=== PATIENT | female | born 1985 | race Hispanic/Latino ===

== ENCOUNTER 2017-03-08 22:55 | Emergency (ER) | payer OTHER ==
[~2017-03-08] VITALS: Ht 170.2 cm; Wt 107.7 kg
[~2017-03-08 22:55] MED LIST: NIC14 TD; NOMED; OMEP20TA86 PO; REG10 PO
[2017-03-08 22:58] VITALS: BP 131/79; PULSE 126; O2SAT 98
--- NOTE | 2017-03-08 23:14 | ED.REPORT ---
HPI-General Illness Date of Service Mar 08, 2017 ED Provider: Ralph Chapin DO The pt is 31 y/o female w/ a hx of a depression, anxiety, and UTI presenting to the ED w/ a headache onset 17:30 today. She took her first dose of Doxycycline at that time, which was prescribed recently for a lump under her breast. Her whole body began hurting after this and her headache began. She describes her headache as "pounding" and feeling like it is "on fire" w/ a severity of 9/10. She tried applying ice packs and Ibuprofen to help reduce the pain, but this was ineffective. She denies any hives or possibility of . Nursing Notes Stated Complaint: HEADACHE Chief Complaint: Allergic Reaction Nursing Notes Reviewed: Yes Allergies: Coded Allergies: Penicillins (Verified Allergy, Unknown, 03/08/17) hydrocodone (Verified Allergy, Unknown, 03/08/17) Scheduled MetoCLOpramide-Expunged Drug, Do Not Renew! (MetoCLOpramide-Expunged Drug, Do Not Renew!) 10 Mg Tablet 10 MG PO ACHS TO STIMULATE GASTRIC MOTILITY Omeprazole-Expunged Drug, Do Not Renew! (Omeprazole-Expunged Drug, Do Not Renew! ) 20 Mg Tablet.dr 20 MG PO AM STOMACH ACID REDUCTION/HEART BURN CONTINUE FOR 14 DAYS, THEN STOP AND SEE IF ANY PROBLEMS ONCE OFF IT & AND IF START DELEVOPING RECURENT ABDOMINAL PAIN/ NAUSEA THEN RESTART TAKING IT Scheduled PRN Nicotine-Expunged Drug, Do Not Renew! (Nicoderm 14mg-Expunged Drug, Do Not Renew !) Patch 1 EA TD DAILY PRN PRN TO QUIT SMOKING Miscellaneous Medications No Historical Medication (No Historical Medication) Ea General Time Seen by MD: 23:13 Chief Complaint Headache Hx Obtained From: Patient Arrived By: Walk-in Sudden in Onset?: Yes Onset Occurred: 5 - 8 hours ago Symptom Duration: Since onset Recent Healthcare: No recent hospitalization, Recent doctor visit Similar Sx Previous: No Past Medical History Past Medical History Endometriosis UTI depression anxiety blood transfusion Past Surgical History denies Smoking History Current Every Day Smoker Social History Alcohol Use: "Social" Drug Use: Denies drug use Other Social History: Good social support Occupation lives with friends Ambulatory Status Independent Review of Systems Full Review of Systems Constitutional: Denies: Chills Respiratory: Denies: Non-productive cough, Shortness of breath Cardiovascular: Denies: Chest pain Musculoskeletal: Reports: Myalgia Allergy / Immune: Denies: Hives Neurologic: Reports: Headache Complete sys rev & neg: except as marked. Physical Exam Vital Signs Vital Signs Date Time Temp Pulse Resp B/P Pulse Ox O2 Delivery O2 Flow Rate FiO2 03/09/17 02:02 37 69 16 107/60 95 Room Air 03/08/17 22:58 36.5 126 131/79 98 Room Air Initial VS: Reviewed Head / Eyes: Atraumatic, Normocephalic, PERRL ENT: Mucous membranes moist, Conjunctiva normal, No scleral icterus Neck: Supple, Non-tender, Full range of motion Cardiovascular: Regular rate & rhythm, Heart sounds normal, Intact distal pulses Abdomen / GI: Soft, Non-tender Skin: Warm, Dry, No cyanosis General/Constitutional: Awake, Alert Distress / Hydration: Positive: Distress moderate Behavior: Positive: Anxious, Tearful Respiratory / Chest: Atraumatic, Breath sounds NL, Breath sounds = bilat, No respiratory distress Hyperventilation Neurologic: Oriented X3, Speech NL, No motor deficits, No sensory deficits, CN II - XII intact Psychiatric: Affect NL, Mood NL Interpretation & Diagnostics Lab Results Interpretation Result Diagram: 03/08/17 2350 03/08/17 2350 Test 03/08/17 23:50 03/09/17 00:40 03/09/17 00:50 White Blood Count 12.0th/mm3 (3.8-10.1) Red Blood Count 3.82mil/mm3 (3.90-5.20) Hemoglobin 11.4g/dL (12.0-15.6) Hematocrit 33.8% (35.0-46.0) Mean Corpuscular Volume 88.5fL (81-100) Mean Corpuscular Hemoglobin 29.8pg (27.0-35.0) Mean Corpuscular Hemoglobin Concent 33.7% (32.0-37.0) Red Cell Distribution Width 14.6% (12.3-15.4) Platelet Count 322bil/L (150-400) Neutrophils (%) (Auto) 66.8% (40-74) Lymphocytes (%) (Auto) 22.1% (14-46) Monocytes (%) (Auto) 9.4% (4-12) Eosinophils (%) (Auto) 1.2% (0-5) Basophils (%) (Auto) 0.2% (0-3) Sodium Level 137mEq/L (134-144) Potassium Level 3.8mEq/L (3.5-5.2) Chloride Level 102mEq/L (97-108) Carbon Dioxide Level 21mmol/L (18-29) Blood Urea Nitrogen 8mg/dL (6-20) Creatinine 0.53mg/dL (0.57-1.00) Estimat Glomerular Filtration Rate 194mL/min (>59) Glucose Level 100mg/dL (60-99) Calcium Level 9.5mg/dL (8.5-10.1) Total Bilirubin 0.3mg/dL (0.0-1.2) Aspartate Amino Transf (AST/SGOT) 18U/L (0-50) Alanine Aminotransferase (ALT/SGPT) 19U/L (0-32) Alkaline Phosphatase 65U/L (25-150) Total Protein 7.0g/dL (6.4-8.4) Albumin 4.1g/dL (3.4-5.0) Hold Quinones Top Tube Received (Received) CSF Appearance Clear (CLEAR) CSF Color Colorless (COLORLESS) CSF WBC 0/mm3 (0-5) CSF RBC 5/mm3 CSF Mononuclear WBCs % CSF Polynuclear WBCs % CSF Other Cells CSF Glucose 64mg/dL (45-90) CSF Total Protein 44mg/dL (15-45) Urine Color Straw (YELLOW) Urine Appearance Clear (CLEAR,HAZY) Urine pH 6.5 (5.0-8.0) Urine Specific Nash 1.010 (1.003-1.035) Urine Protein Negativemg/dL (NEG,TRACE) Urine Glucose (UA) Negativemg/dL (NEGATIVE) Urine Ketones Negativemg/dL (NEGATIVE) Urine Occult Blood Negative (NEGATIVE) Urine Nitrite Negative (NEGATIVE) Urine Bilirubin Negative (NEGATIVE) Urine Urobilinogen Normalmg/dL (NORMAL) Urine Leukocyte Esterase Negative (NEGATIVE) Urine RBC 0-2/hpf (0-2) Urine WBC 0-5/hpf (0-5) Urine Epithelial Cells Few/hpf (NONE-MOD) Urine Crystals None seen (NONE SEEN) Urine Bacteria Few/hpf (NONE-FEW) Urine Hyaline Casts None/lpf (NONE) Urine Granular Casts None seen (NONE SEEN) Urine Waxy Casts None seen (NONE SEEN) Urine Red Blood Cell Casts None seen (NONE SEEN) Urine White Blood Cell Casts None seen (NONE SEEN) Urine Mucus None seen (None Seen) Urine Trichomonas None seen (NONE SEEN) Urine Yeast None (NONE SEEN) Urinalysis Comment None Urine Culture Reflexed Not indicated Hold Urine Received (Received) Pulse Oximetry Interpretation Pulse Oximetry Interpretation: 98% on RA Pulse Oximetry: Pulse Ox normal CT Head Interpretation Impression: No CT evidence of hemorrhage, mass, or acute infarct. Study: Head CT no contrast Interpretation / Wet Read by: Wet read ED physician Procedures Lumbar Puncture Time: 00:26 Procedure Performed by: ED physician Consent / Setup / Site Prep: Informed consent provided, Consent from patient , Time-out performed, Hand hygiene observed, Stand sterile technique, Sterile drapes applied, Patient left lateral Skin Preparation Agent: Betadine Local Anesthesia: Lidocaine 1% LP Needle Gauge: 22 gauge Inserted Needle at: L3 L4 Post-Procedure / Complications: Antibiotic oint applied, Dressing applied, No complications, Tolerated procedure well, Patient stable Lab Results Interpretation Result Diagram: 03/08/17 2350 03/08/17 2350 Test 03/08/17 23:50 03/09/17 00:40 03/09/17 00:50 White Blood Count 12.0th/mm3 (3.8-10.1) Red Blood Count 3.82mil/mm3 (3.90-5.20) Hemoglobin 11.4g/dL (12.0-15.6) Hematocrit 33.8% (35.0-46.0) Mean Corpuscular Volume 88.5fL (81-100) Mean Corpuscular Hemoglobin 29.8pg (27.0-35.0) Mean Corpuscular Hemoglobin Concent 33.7% (32.0-37.0) Red Cell Distribution Width 14.6% (12.3-15.4) Platelet Count 322bil/L (150-400) Neutrophils (%) (Auto) 66.8% (40-74) Lymphocytes (%) (Auto) 22.1% (14-46) Monocytes (%) (Auto) 9.4% (4-12) Eosinophils (%) (Auto) 1.2% (0-5) Basophils (%) (Auto) 0.2% (0-3) Sodium Level 137mEq/L (134-144) Potassium Level 3.8mEq/L (3.5-5.2) Chloride Level 102mEq/L (97-108) Carbon Dioxide Level 21mmol/L (18-29) Blood Urea Nitrogen 8mg/dL (6-20) Creatinine 0.53mg/dL (0.57-1.00) Estimat Glomerular Filtration Rate 194mL/min (>59) Glucose Level 100mg/dL (60-99) Calcium Level 9.5mg/dL (8.5-10.1) Total Bilirubin 0.3mg/dL (0.0-1.2) Aspartate Amino Transf (AST/SGOT) 18U/L (0-50) Alanine Aminotransferase (ALT/SGPT) 19U/L (0-32) Alkaline Phosphatase 65U/L (25-150) Total Protein 7.0g/dL (6.4-8.4) Albumin 4.1g/dL (3.4-5.0) Hold Quinones Top Tube Received (Received) CSF Appearance Clear (CLEAR) CSF Color Colorless (COLORLESS) CSF WBC 0/mm3 (0-5) CSF RBC 5/mm3 CSF Mononuclear WBCs % CSF Polynuclear WBCs % CSF Other Cells CSF Glucose 64mg/dL (45-90) CSF Total Protein 44mg/dL (15-45) Urine Color Straw (YELLOW) Urine Appearance Clear (CLEAR,HAZY) Urine pH 6.5 (5.0-8.0) Urine Specific Nash 1.010 (1.003-1.035) Urine Protein Negativemg/dL (NEG,TRACE) Urine Glucose (UA) Negativemg/dL (NEGATIVE) Urine Ketones Negativemg/dL (NEGATIVE) Urine Occult Blood Negative (NEGATIVE) Urine Nitrite Negative (NEGATIVE) Urine Bilirubin Negative (NEGATIVE) Urine Urobilinogen Normalmg/dL (NORMAL) Urine Leukocyte Esterase Negative (NEGATIVE) Urine RBC 0-2/hpf (0-2) Urine WBC 0-5/hpf (0-5) Urine Epithelial Cells Few/hpf (NONE-MOD) Urine Crystals None seen (NONE SEEN) Urine Bacteria Few/hpf (NONE-FEW) Urine Hyaline Casts None/lpf (NONE) Urine Granular Casts None seen (NONE SEEN) Urine Waxy Casts None seen (NONE SEEN) Urine Red Blood Cell Casts None seen (NONE SEEN) Urine White Blood Cell Casts None seen (NONE SEEN) Urine Mucus None seen (None Seen) Urine Trichomonas None seen (NONE SEEN) Urine Yeast None (NONE SEEN) Urinalysis Comment None Urine Culture Reflexed Not indicated Hold Urine Received (Received) Re-Eval/Medical Decision Med Decision/Clinical Course 31 year old female with sudden onset severe headache. CT was normal. LP performed to rule out SAH and meningitis. All was well. Pt treated symptomatically and she did very well. Source of Hx: Old records Time of Eval: 00:25 Patient Status: Condition improved Re-Evaluation/Progress Note: Pt rechecked and lumbar puncture performed. No complications and pt tolerated the procedure well. Time of Eval: 01:37 Patient Status: Condition improved Re-Evaluation/Progress Note: Pt rechecked who is resting comfortably. Informed pt of plan for treatment. Pt understands and agrees with plan for treatment. F/U instructions and RTER warnings given. All questions addressed. Counseled Regarding: Diagnosis, Lab results, Need for follow-up, When/why to return to ED Discharge & Departure Primary Impression: Acute headache Headache type: unspecified Intractability: not intractable Qualified Code: R51 - Headache Disposition: Home Discharge Condition All VS Reviewed: Yes Condition: Stable Patient Instructions: Acute Headache (ED) Additional Instructions: CT scan and lumbar puncture were normal with no signs of infection or bleeding. It is hard to say if the symptoms were due to a reaction with the Doxycycline. Stop taking the Doxycycline and begin taking Clindamycin 3 times daily for 7 days. Call your doctor on Saturday to inform them that you switched medications. Do not drive tonight as you have received sedating medications. Follow up next week with your doctor either way. If you develop any diarrhea while taking the Clindamycin stop taking it and get tested for C-difficile diarrhea. Return to the emergency department if you develop any new or worsening symptoms. Referrals: [facility] Scribe Attestation Portions of this note were transcribed by Sandeep Landa and Cali Jerome. I, Dr. Chapin personally performed the history, physical exam and medical decision-making ; I reviewed and confirmed the accuracy of the information in the transcribed note. Signed by: Sandeep Jerome, Scribes, 03/09/17 and 0148. copies to: [facility] Ralph Chapin DO Mar 08, 2017 23:14 Sandeep Landa Mar 08, 2017 23:37 CALI JEROME Mar 09, 2017 01:11
[2017-03-08] MEDS ORDERED: Dexamethasone 10 mg/mL Inj IM ONE (23:20)
[2017-03-08 23:59] LABS: BASOPHILS % (AUTO) 0.2 % (0-3); EOSINOPHILS % (AUTO) 1.2 % (0-5); MONOCYTES % (AUTO) 9.4 % (4-12); Mean Corpuscular Hemoglobin 29.8 pg (27.0-35.0); Mean Corpuscular Volume 88.5 fL (81-100); NEUTROPHILS % (AUTO) 66.8 % (40-74); Platelet Count 322 bil/L (150-400)
[2017-03-09 01:08] LABS: APPEARANCE,CSF CLEAR (CLEAR)
[2017-03-09 01:09] LABS: COLOR,CSF COLORLESS (COLORLESS); WHITE BLOOD CELL,CSF 0 /mm3 (0-5)
[2017-03-09 02:02] VITALS: BP 107/60; PULSE 69; RESP 16; O2SAT 95
[2017-03-09 02:06] LABS: APPEARANCE,URINE CLEAR (CLEAR,HAZY); COLOR,URINE STRAW (YELLOW); OCCULT BLOOD,URINE NEGATIVE (NEGATIVE); PH,URINE 6.5 (5.0-8.0); UROBILINOGEN,URINE NORMAL (NORMAL)
--- NOTE | 2017-03-09 09:22 | DRSVH ---
PROCEDURE: CT BRAIN WITHOUT CONTRAST ([id number]) INDICATIONS: sudden severe headache TECHNIQUE: Noncontrast 4.5 mm thick angled axial sections acquired from the foramen magnum to the vertex, with c oronal reformats. COMPARISON: None. FINDINGS: Image quality: Excellent. CSF spaces: Basal cisterns are patent. No extra-axial fluid collections. Ventricles are normal in size and shape. Brain: No midline shift. No intracranial masses or hemorrhage. Bernstein-white matter interface is norm al. Skull and face: Calvarium and visualized facial bones are intact, without suspicious lesions. Sinuses: Visualized sinuses and mastoids are clear. 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 IMPRESSION: No acute disease. 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 A source of acute onset headaches is not seen. Dictated by: Zeferino Kirkpatrick M.D. on 03/09/2017 at 9:08 Approved by: Zeferino Kirkpatrick M.D. on 03/09/2017 at 9:21
== END 2017-03-09 02:11 | disposition home or self-care (01) ==
LOC: SED 22:55
DX: R51 Headache (principal); F17.200 Nicotine dependence, unspecified, uncomplicated; Z88.0 Allergy status to penicillin; Z88.5 Allergy status to narcotic agent
CPT/HCPCS: 36415; 62270; 70450; 80053; 81000; 82945; 84155; 85025; 87070; 87205; 89051; 96372; 99285; J1100; J1200; J2060

== ENCOUNTER 2017-03-12 16:35 | Emergency (ER) | payer OTHER ==
[~2017-03-12] VITALS: Ht 170.2 cm; Wt 107.7 kg
[2017-03-12 16:38] VITALS: BP 121/77; PULSE 102; RESP 15; O2SAT 97
--- NOTE | 2017-03-12 17:17 | ED.REPORT ---
HPI-General Illness Date of Service Mar 12, 2017 ED Provider: Dr. Jensen Patient is a 31 year old female with a history of depression, anxiety, headaches and UTI presenting with a headache and right sided arm pain. Her pain is localized on the shoulder extending down to her elbow with a numbing pain in the forearm. This pain is exacerbated by movement. She denies vomiting but has been feeling nauseated. Patient also admits to general weakness, photophobia and pain radiating into her back. The patient was seen 3 days ago for a headache and a lumbar puncture was performed. Her symptoms began the morning after that visit. She has been taking 800 mg Ibuprofen for the pain since with the last dose this morning, and is currently on Clindamycin. Nursing Notes Stated Complaint: RIGHT SIDE BODY PAIN AFTER SPINAL TAP Chief Complaint: General Complaint Nursing Notes Reviewed: Yes Allergies: Coded Allergies: Penicillins (Verified Allergy, Unknown, 03/12/17) hydrocodone (Verified Allergy, Unknown, 03/12/17) Scheduled MetoCLOpramide-Expunged Drug, Do Not Renew! (MetoCLOpramide-Expunged Drug, Do Not Renew!) 10 Mg Tablet 10 MG PO ACHS TO STIMULATE GASTRIC MOTILITY Omeprazole-Expunged Drug, Do Not Renew! (Omeprazole-Expunged Drug, Do Not Renew! ) 20 Mg Tablet.dr 20 MG PO AM STOMACH ACID REDUCTION/HEART BURN CONTINUE FOR 14 DAYS, THEN STOP AND SEE IF ANY PROBLEMS ONCE OFF IT & AND IF START DELEVOPING RECURENT ABDOMINAL PAIN/ NAUSEA THEN RESTART TAKING IT Scheduled PRN Cyclobenzaprine (Cyclobenzaprine) 10 Mg Tablet 10 MG PO TID PRN PRN Spasm Naproxen (Naproxen) 500 Mg Tab 500 MG PO BID PRN PRN For Pain Nicotine-Expunged Drug, Do Not Renew! (Nicoderm 14mg-Expunged Drug, Do Not Renew !) Patch 1 EA TD DAILY PRN PRN TO QUIT SMOKING Miscellaneous Medications No Historical Medication (No Historical Medication) Ea General Time Seen by MD: 17:17 Chief Complaint Other (Right arm pain) Hx Obtained From: Patient Arrived By: Walk-in Sudden in Onset?: No Onset Occurred: 3 days ago Symptom Duration: Since onset Recent Healthcare: No recent hospitalization, Recent doctor visit Past Medical History Past Medical History Endometriosis UTI depression anxiety blood transfusion headaches Past Surgical History denies Smoking History Current Every Day Smoker Social History Alcohol Use: "Social" Drug Use: Denies drug use Other Social History: Good social support Occupation lives with friends Ambulatory Status Independent Review of Systems shoulder pain Full Review of Systems Constitutional: Reports: Weakness - generalized Eyes: Reports: Photophobia Respiratory: Denies: Non-productive cough, Shortness of breath GI: Reports: Nausea, Denies: Vomiting Musculoskeletal: Reports: Back pain, Extremity pain Neurologic: Reports: Headache Complete sys rev & neg: except as marked. Physical Exam Vital Signs Vital Signs Date Time Temp Pulse Resp B/P Pulse Ox O2 Delivery O2 Flow Rate FiO2 03/12/17 16:38 36.7 102 15 121/77 97 Room Air Initial VS: Reviewed General/Constitutional: Well-developed, Well-nourished Head / Eyes: Atraumatic, Normocephalic Respiratory: Breath sounds normal, Clear to auscultation, No respiratory distress Cardiovascular: Regular rate & rhythm, Heart sounds normal Abdomen / GI: Soft, Non-tender Extremities: Vascular intact, Neuro intact Skin: Warm, Dry Neurologic: Alert, Oriented Psychiatric: Mood/affect normal ENT: Atraumatic, Airway patent, Mucous membranes moist Neck: Atraumatic, Supple paraspinous spasm Back: Atraumatic, Full range of motion Neurologic: Speech NL, No motor deficits steady gait Re-Eval/Medical Decision Med Decision/Clinical Course AMEZQUITA and R sided muscle pain/spasm. No features to suggest post LP AMEZQUITA. No lateralizing weakness, CVA not found. Source of Hx: Old records Time of Eval: 17:17 Patient Status: Condition improved Re-Evaluation/Progress Note: Plan for discharge and diagnosis discussed with the patient. She understands and agrees with the plan. All questions have been answered at this time. Counseled Regarding: Diagnosis, Need for follow-up, When/why to return to ED Discharge & Departure Primary Impression: Acute headache Headache type: tension-type Intractability: not intractable Qualified Code : G44.209 - Tension-type headache, unspecified, not intractable Additional Impression: Acute pain of right shoulder Disposition: Home Discharge Condition All VS Reviewed: Yes Condition: Stable Patient Instructions: Muscle Strain (ED) Additional Instructions: Emergency department evaluation today included interview, examination and review of past records. There does not appear to be a serious problem causing headache and right shoulder pain/spasm. It is felt to use naproxen and cyclobenzaprine as needed for pain, ice will also be helpful, ice to sore areas for 10-15 minutes up to every 1 hour. Use an ice pack or a bag of frozen vegetables wrapped in a towel. Naproxen twice daily take with food. Cyclobenzaprine as needed for pain, may also use acetaminophen. Follow up with primary care next week. Return to emergency department for fevers, frequent vomiting and Referrals: Lolis Nick MD (PCP) Scribe Attestation Portions of this note were transcribed by Gurmeet Ho and Benjy Jerome. I, Dr. Jensen personally performed the history, physical exam and medical decision- making; I reviewed and confirmed the accuracy of the information in the transcribed note. Signed by: Gurmeet Ho and Severiano Fletcher, 2015 and 1839. copies to: Lolis Nick MD, Donald L MD Mar 12, 2017 17:17 Gurmeet Ho Mar 12, 2017 17:47 BENJY JEROME Mar 12, 2017 18:21
[2017-03-12] MEDS ORDERED: CYCL10TA9 PO (17:51)
[2017-03-12] MEDS ORDERED: NPR500T PO (17:51)
== END 2017-03-12 18:14 | disposition home or self-care (01) ==
LOC: SED 16:35
DX: G44.209 Tension-type headache, unspecified, not intractable (principal); M25.511 Pain in right shoulder; F17.200 Nicotine dependence, unspecified, uncomplicated; Z87.440 Personal history of urinary (tract) infections; Z88.0 Allergy status to penicillin; Z88.5 Allergy status to narcotic agent
CPT/HCPCS: 96372; 99283; J1885

== ENCOUNTER 2017-06-05 15:55 | Emergency (ER) | payer OTHER ==
[~2017-06-05] VITALS: Ht 170.2 cm; Wt 109.1 kg
[~2017-06-05 15:55] MED LIST changes: +CYCL10TA9 PO; +NPR500T PO
[2017-06-05 15:59] VITALS: BP 123/78; PULSE 99; RESP 18; O2SAT 97
--- NOTE | 2017-06-05 16:38 | ED.REPORT ---
HPI-Extremity Problem Lower Date of Service Jun 05, 2017 ED Provider: Donte Jensen MD A 32 year old female with a history of muscle spasms, anxiety and depression and a family history of blood clots presents to the ED complaining of right lower extremity edema. The pt noticed the swelling in her foot and leg four days ago, and states that her toes now appear to be turning purple. The pt denies trauma to the area or recent periods of travel. She also denies a personal history of blood clots or use of hormone therapy. Her last menstrual period was 04/30/2017. Nursing Notes Stated Complaint: RIGHT LEG/FOOT SWELLING Chief Complaint: General Complaint Nursing Notes Reviewed: Yes Allergies: Coded Allergies: Penicillins (Verified Allergy, Unknown, 06/05/17) hydrocodone (Verified Allergy, Unknown, 06/05/17) Scheduled Hydrochlorothiazide (Hydrochlorothiazide) 12.5 Mg Capsule 12.5 MG PO DAILY MetoCLOpramide-Expunged Drug, Do Not Renew! (MetoCLOpramide-Expunged Drug, Do Not Renew!) 10 Mg Tablet 10 MG PO ACHS TO STIMULATE GASTRIC MOTILITY Omeprazole-Expunged Drug, Do Not Renew! (Omeprazole-Expunged Drug, Do Not Renew! ) 20 Mg Tablet.dr 20 MG PO AM STOMACH ACID REDUCTION/HEART BURN CONTINUE FOR 14 DAYS, THEN STOP AND SEE IF ANY PROBLEMS ONCE OFF IT & AND IF START DELEVOPING RECURENT ABDOMINAL PAIN/ NAUSEA THEN RESTART TAKING IT Scheduled PRN Cyclobenzaprine (Cyclobenzaprine) 10 Mg Tablet 10 MG PO TID PRN PRN Spasm Naproxen (Naproxen) 500 Mg Tab 500 MG PO BID PRN PRN For Pain Nicotine-Expunged Drug, Do Not Renew! (Nicoderm 14mg-Expunged Drug, Do Not Renew !) Patch 1 EA TD DAILY PRN PRN TO QUIT SMOKING Miscellaneous Medications No Historical Medication (No Historical Medication) Ea General Time Seen by MD: 16:38 Chief Complaint Other (Right lower extremity edema) Hx Obtained From: Patient Arrived By: Walk-in Onset Occurred: 4 days ago Symptom Duration: Since onset Recent Healthcare: No recent hospitalization, Recent doctor visit Similar Sx Previous: No Past Medical History Past Medical History Endometriosis UTI depression anxiety blood transfusion headaches Past Surgical History none reported Smoking History Current Every Day Smoker Social History Alcohol Use: "Social" Drug Use: Denies drug use Other Social History: Good social support Occupation lives with friends Ambulatory Status Independent Review of Systems Review of Systems Note: right lower extremity edema discoloration of right toes Musculoskeletal: Denies: Back pain, Neck pain Skin: Denies Rash Complete sys rev & neg: except as marked. Respiratory: Denies: Non-productive cough, Shortness of breath Cardiovascular: Denies: Chest pain Physical Exam Initial Vital Signs Vital Signs (First) Date Time Temp Pulse Resp B/P Pulse Ox O2 Delivery O2 Flow Rate FiO2 06/05/17 15:59 36.7 99 18 123/78 97 Room Air Initial VS: Reviewed Lower Extremity / Pelvis / MS: Atraumatic, Full range of motion no cords Ankle / Foot: Full range of motion, Neurologic intact right foot swollen pulses intact cap refill intact no warmth or erythema not discolored General/Constitutional: Awake, Alert Respiratory / Chest: Atraumatic, Breath sounds NL, Breath sounds = bilat, No respiratory distress Cardiovascular: Heart rate NL, Regular rhythm, Heart sounds NL Skin: Atraumatic, Color NL, No rash, Warm, Dry Neurologic: Oriented X3, Speech NL, No motor deficits, No sensory deficits Head / Eyes: Atraumatic, Normocephalic, PERRL, EOMI ENT: Atraumatic, Airway patent, Mucous membranes moist Neck: Atraumatic, Supple, Full range of motion Abdomen: Atraumatic, Soft, Non-tender Back: Atraumatic, Full range of motion Upper Extremity / MS: Atraumatic, Full range of motion Psychiatric: Affect NL, Mood NL Interpretation & Diagnostics Interpretation & Diagnostics: Venous Duplex US: IMPRESSION: No evidence for deep venous thrombosis is found in the right lower extremity with this duplex venous Doppler study. Dictated by: Carlos A Wahl M.D. on 06/05/2017 at 17:42 Approved by: Carlos A Wahl M.D. on 06/05/2017 at 17:43 Re-Eval/Medical Decision Source of Hx: Old records Re-Evaluation/Progress : Time of Eval: 18:54 Patient Status: Condition improved Re-Evaluation/Progress Note: Pt rechecked, who is resting comfortably. The diagnosis and plan for discharge are discussed. The pt understands and agrees with the plan. All questions are addressed at this time. Counseled Regarding: Diagnosis, Lab results, Need for follow-up, When/why to return to ED Discharge & Departure Impression: Primary Impression: Right leg swelling Disposition: Home Discharge Condition All VS Reviewed: Yes Condition: Stable Patient Instructions: Leg Edema (ED) Additional Instructions: Evaluation included a examination and ultrasound. No serious cause for leg swelling is identified. May use hydrochlorothiazide one daily as needed for leg swelling. Elevate leg above the level of the heart with knee slightly bent when able. Wear support socks. Follow-up with primary care for recheck in about 1 week. Referrals: Lolis Nick MD (PCP) Scribe Attestation Portions of this note were transcribed by Benjy Jerome. I, Dr. Jensen personally performed the history, physical exam and medical decision-making; I reviewed and confirmed the accuracy of the information in the transcribed note. Signed by: Severiano Fletcher, 06/05/2017 and 0736. copies to: Lolis Nick MD, Donald L MD Jun 05, 2017 16:38 BENJY JEROME Jun 05, 2017 16:47
--- NOTE | 2017-06-05 17:45 | DRSVH ---
PROCEDURE: US VEINOUS LEG DUPLEX UNILATERAL, RIGHT INDICATIONS: leg swelling TECHNIQUE: Real-time imaging, as well as color and pulse Doppler interrogation, were performed of the lower extr emity deep veins from the inguinal ligament to the popliteal fossa. COMPARISON: None. FINDINGS: The deep veins are normally compressible, and free of intraluminal thrombus. Color and pu lse Doppler demonstrate normal phasic intraluminal flow. There is normal augmentation response to di stal compression maneuver. IMPRESSION: No evidence for deep venous thrombosis is found in the right lower extremity with this d uplex venous Doppler study. Dictated by: Carlos A Wahl M.D. on 06/05/2017 at 17:42 Approved by: Carlos A Wahl M.D. on 06/05/2017 at 17:43
[2017-06-05 18:20] VITALS: BP 118/63; PULSE 69; O2SAT 96
[2017-06-05] MEDS ORDERED: HYDR12.5 PO (18:59)
[2017-06-05 19:29] VITALS: BP 132/92; PULSE 86; O2SAT 99
== END 2017-06-05 19:30 | disposition home or self-care (01) ==
LOC: SED 15:55
DX: M79.89 Other specified soft tissue disorders (principal); F17.200 Nicotine dependence, unspecified, uncomplicated; Z88.0 Allergy status to penicillin; Z88.5 Allergy status to narcotic agent